=== PATIENT | female | born 1950 | race Caucasian/White ===

== ENCOUNTER → 2016-11-05 | Outpatient (CLI) | payer BC ==
[~2016-11-05] MED LIST: AMLO10TA2 PO; CALC1TAB86 PO; FLUT1DIS IH; LEVO75TA5 PO; LOSA1TAB17 PO; METO25TA91 PO; PARO12.53 PO; RIVA15TA PO
== END | disposition home or self-care (01) ==
LOC: CFH 09:35
PROVIDERS: ATTEND Internal Medicine Cardiovascular Disease
DX: I08.1 Rheumatic disorders of both mitral and tricuspid valves (principal); I48.91 Unspecified atrial fibrillation; I10 Essential (primary) hypertension
CPT/HCPCS: 93306

== ENCOUNTER → 2017-02-25 | Outpatient (CLI) | payer BC ==
[~2017-02-25] MED LIST changes: -LOSA1TAB17 PO; +LOSA1TAB22 PO
== END | disposition home or self-care (01) ==
LOC: CFH 11:53
PROVIDERS: ATTEND Nurse Practitioner Family
DX: I51.7 Cardiomegaly (principal); I10 Essential (primary) hypertension
CPT/HCPCS: 71020

== ENCOUNTER → 2017-04-17 | Outpatient (CLI) | payer BC | END | disposition home or self-care (01) | LOC: CVU 06:53 | PROVIDERS: ATTEND Nurse Practitioner Family | DX: I10 Essential (primary) hypertension (principal); I48.91 Unspecified atrial fibrillation | CPT/HCPCS: 93975 ==

== ENCOUNTER 2017-06-14 10:02 | Emergency (ER) | payer BC ==
[~2017-06-14] VITALS: Ht 165.1 cm; Wt 102.6 kg
[2017-06-14 10:04] VITALS: BP 151/79
[2017-06-14 10:55] LABS: BASOPHILS # (AUTO) 0.01 x10^3/uL (0-0.1); BASOPHILS % (AUTO) 0 % (0-1); EOSINOPHILS # (AUTO) 0.19 x10^3/uL (0-0.4); EOSINOPHILS % (AUTO) 3 % (1-7); LYMPHOCYTES # (AUTO) 0.39 x10^3/uL (1-3.4); LYMPHOCYTES % (AUTO) 6 % (22-44); MD NO; MEAN CORPUSCULAR HEMOGLOBIN 32.2 pg (27.0-34.8); MEAN CORPUSCULAR HGB CONC 33.9 g/dL (32.4-35.8); MEAN CORPUSCULAR VOLUME 94.9 fL (80-100); MEAN PLATELET VOLUME 7.6 fL (7.4-10.4); MONOCYTES # (AUTO) 0.61 x10^3/uL (0.2-0.8); MONOCYTES % (AUTO) 10 % (2-9); NEUTROPHILS # (AUTO) 5.12 x10^3/uL (1.8-6.8); NEUTROPHILS % (AUTO) 81 % (42-75); PLATELET COUNT 323 x10^3/uL (130-400); RED BLOOD COUNT 3.94 x10^6/uL (3.82-5.3); RED CELL DISTRIBUTION WIDTH 13.5 % (9.6-15.2)
[2017-06-14] MEDS ORDERED: SODIUM CHLORIDE FLUSH 10ML SYR IVF ONE (11:00)
[2017-06-14 11:03] LABS: INTERNATIONAL NORMALIZED RATIO 1.09 (0.93-1.1); PROTHROMBIN TIME 11.3 Seconds (9.6-11.5)
[2017-06-14 11:07] LABS: ALANINE AMINOTRANSFERASE 59 U/L (12-78); ALBUMIN 3.3 g/dL (3.4-5.0); ANION GAP 8 mmol/L (5-15); CALCIUM 8.5 mg/dL (8.5-10.1); CHLORIDE 104 mmol/L (98-107)
[2017-06-14 11:11] LABS: ALKALINE PHOSPHATASE 109 U/L (45-117); BILIRUBIN,TOTAL 0.6 mg/dL (0.2-1.0); TOTAL PROTEIN 7.3 g/dL (6.4-8.2); TROPONIN I < 0.015 ng/mL (0.000-0.045)
[2017-06-14] MEDS ORDERED: DABI150C PO (11:24)
[2017-06-14] MEDS ORDERED: VALS1TAB30 PO (11:24)
[2017-06-14] MEDS ORDERED: SPIR25TA PO (11:29)
[2017-06-14] MEDS ORDERED: DOXA1TAB2 PO (11:29)
[2017-06-14] MEDS ORDERED: FURO-93 PO (11:29)
[2017-06-14] MEDS ORDERED: AMIO100T4 PO (11:29)
[2017-06-14] MEDS ORDERED: CARV6.252 PO (11:29)
[2017-06-14] MEDS ORDERED: MAALOX/HYOSCYAMINE/LIDOCAINE 45 ML BTL ONE (11:49)
[2017-06-14] MEDS ORDERED: MAALOX/HYOSCYAMINE/LIDOCAINE 45 ML BTL PO ONE (12:00)
== END 2017-06-14 12:51 | disposition home or self-care (01) ==
LOC: ED 10:30
DX: R07.89 Other chest pain (principal); E03.9 Hypothyroidism, unspecified; I48.91 Unspecified atrial fibrillation; F32.9 Major depressive disorder, single episode, unspecified; I10 Essential (primary) hypertension; Z79.899 Other long term (current) drug therapy
CPT/HCPCS: 36415; 71045; 80053; 83690; 84484; 85025; 85610; 85730; 93005; 99285

== ENCOUNTER → 2017-08-14 | Outpatient (CLI) | payer BC ==
[~2017-08-14] MED LIST changes: +AMIO100T4 PO; +CARV6.252 PO; +DABI150C PO; +DOXA1TAB2 PO; +FURO-93 PO; +SPIR25TA PO; +VALS1TAB30 PO
== END | disposition home or self-care (01) ==
LOC: CARD 15:41
PROVIDERS: ATTEND Nurse Practitioner Family
DX: R06.00 Dyspnea, unspecified (principal); J43.9 Emphysema, unspecified
CPT/HCPCS: 94060; 94726; 94729

== ENCOUNTER 2017-11-27 17:06 | Observation (INO) | payer BC ==
[~2017-11-27] VITALS: Ht 165.1 cm; Wt 100.8 kg
[2017-11-27] MEDS ORDERED: FUROSEMIDE 40 MG/4 ML IV ONE (18:00)
[2017-11-27 18:09] LABS: BASOPHILS # (AUTO) 0.03 x10^3/uL (0-0.1); BASOPHILS % (AUTO) 0 % (0-1); EOSINOPHILS # (AUTO) 0.07 x10^3/uL (0-0.4); EOSINOPHILS % (AUTO) 1 % (1-7); LYMPHOCYTES # (AUTO) 0.34 x10^3/uL (1-3.4); LYMPHOCYTES % (AUTO) 4 % (22-44); MD NO; MEAN CORPUSCULAR HEMOGLOBIN 31.8 pg (27.0-34.8); MEAN CORPUSCULAR HGB CONC 33.8 g/dL (32.4-35.8); MEAN CORPUSCULAR VOLUME 93.9 fL (80-100); MEAN PLATELET VOLUME 7.3 fL (7.4-10.4); MONOCYTES # (AUTO) 0.72 x10^3/uL (0.2-0.8); MONOCYTES % (AUTO) 8 % (2-9); NEUTROPHILS # (AUTO) 8.02 x10^3/uL (1.8-6.8); NEUTROPHILS % (AUTO) 87 % (42-75); PLATELET COUNT 316 x10^3/uL (130-400); RED BLOOD COUNT 3.69 x10^6/uL (3.82-5.3); RED CELL DISTRIBUTION WIDTH 14.5 % (9.6-15.2)
[2017-11-27 18:21] LABS: ALANINE AMINOTRANSFERASE 61 U/L (12-78); ALBUMIN 3.4 g/dL (3.4-5.0); ANION GAP 9 mmol/L (5-15); CHLORIDE 107 mmol/L (98-107); CREATININE 0.94 mg/dL (0.55-1.02)
[2017-11-27 18:25] LABS: ALKALINE PHOSPHATASE 104 U/L (45-117); BILIRUBIN,TOTAL 0.8 mg/dL (0.2-1.0); TROPONIN I < 0.015 ng/mL (0.000-0.045)
[2017-11-27] MEDS ORDERED: FUROSEMIDE 40 MG/4 ML ONE (18:36)
[2017-11-27] MEDS ORDERED: CHOL2000 PO (18:51)
[2017-11-27] MEDS ORDERED: WELLBUTRIN PO (18:51)
[2017-11-27] MEDS ORDERED: CARV12.52 PO (18:51)
[2017-11-27] MEDS ORDERED: PRED10TA PO (18:54)
[2017-11-27] MEDS ORDERED: SODIUM CHLORIDE FLUSH 10ML SYR IVF ONE (19:00)
[2017-11-27] MEDS ORDERED: POTASSIUM CHLORIDE 20 MEQ TAB.ER.PRT PO ONE (20:00)
[2017-11-27] MEDS: CARVEDILOL 12.5 MG TABLET PO SCH (20:54)
[2017-11-27] MEDS: SODIUM CHLORIDE FLUSH 10ML SYR IVF SCH (20:55)
[2017-11-27] MEDS: DABIGATRAN 150 MG CAPSULE PO SCH (20:55)
[2017-11-27] MEDS ORDERED: DOXAZOSIN 1MG TABLET PO SCH (21:00)
[2017-11-27 22:11] VITALS: BP 161/77
[2017-11-28 00:28] VITALS: BP 153/72
[2017-11-28] MEDS ORDERED: LEVOTHYROXINE 75 MCG TABLET PO SCH (06:00)
[2017-11-28 06:47] VITALS: BP 160/71
[2017-11-28] MEDS ORDERED: DOXAZOSIN 2MG TABLET PO SCH (09:00)
[2017-11-28] MEDS ORDERED: SPIRONOLACTONE 25 MG TABLET PO SCH (09:00)
[2017-11-28] MEDS ORDERED: AMIODARONE 200 MG TABLET PO SCH (09:00)
[2017-11-28] MEDS ORDERED: CHOLECALCIFEROL 1,000 UNIT TABLET PO SCH (09:00)
[2017-11-28 09:30] VITALS: BP 118/71
[2017-11-28] MEDS: SODIUM CHLORIDE FLUSH 10ML SYR IVF SCH (09:50)
[2017-11-28] MEDS: DABIGATRAN 150 MG CAPSULE PO SCH (09:57)
[2017-11-28] MEDS: CARVEDILOL 12.5 MG TABLET PO SCH (09:58)
[2017-11-28] MEDS ORDERED: AMLO5TAB4 PO (10:21)
[2017-11-28] MEDS ORDERED: IRBE300T16 PO (10:26)
[2017-11-28] MEDS ORDERED: HYDR50TA3 PO (10:27)
[2017-11-28] MEDS ORDERED: BUMETANIDE 0.25 MG/ML, 4ML IV SCH ×2 (11:00)
[2017-11-28 12:15] VITALS: BP 153/75
[2017-11-28] MEDS ORDERED: DOXAZOSIN 1MG TABLET PO ONE (12:30)
[2017-11-28 14:08] VITALS: BP 135/72
== END 2017-11-28 16:09 | disposition home or self-care (01) ==
LOC: ED 17:22 → EDIP 18:56 → 4WST 20:04 → DCLOUNGE 11-28 15:52
PROVIDERS: ADMIT Hospitalist; ATTEND Hospitalist
DX: I11.0 Hypertensive heart disease with heart failure (principal); I50.1 Left ventricular failure, unspecified; M79.89 Other specified soft tissue disorders; E03.9 Hypothyroidism, unspecified; F32.9 Major depressive disorder, single episode, unspecified; I48.91 Unspecified atrial fibrillation; K21.9 Gastro-esophageal reflux disease without esophagitis; Z79.01 Long term (current) use of anticoagulants
CPT/HCPCS: 36415; 71045; 80053; 83880; 84484; 85025; 85379; 93005; 93306; 96374; 96375; 96376; 99285; G0378; J1940

== ENCOUNTER 2017-12-01 12:46 | Emergency (ER) | payer BC ==
[~2017-12-01] VITALS: Ht 165.1 cm; Wt 97.0 kg
[~2017-12-01 12:46] MED LIST changes: +AMLO5TAB4 PO; +CARV12.52 PO; +CHOL2000 PO; +HYDR50TA3 PO; +IRBE300T16 PO; +PRED10TA PO; +WELLBUTRIN PO
[2017-12-01 13:55] LABS: MEAN CORPUSCULAR HEMOGLOBIN 31.4 pg (27.0-34.8); MEAN CORPUSCULAR HGB CONC 33.9 g/dL (32.4-35.8); MEAN CORPUSCULAR VOLUME 92.5 fL (80-100); MEAN PLATELET VOLUME 7.4 fL (7.4-10.4); PLATELET COUNT 386 x10^3/uL (130-400); RED BLOOD COUNT 4.34 x10^6/uL (3.82-5.3); RED CELL DISTRIBUTION WIDTH 14.6 % (9.6-15.2)
[2017-12-01 14:04] LABS: ALANINE AMINOTRANSFERASE 42 U/L (12-78); ALBUMIN 3.8 g/dL (3.4-5.0); ANION GAP 3 mmol/L (5-15); CALCIUM 9.1 mg/dL (8.5-10.1); CHLORIDE 100 mmol/L (98-107); CREATININE 1.53 mg/dL (0.55-1.02)
[2017-12-01 14:09] LABS: ALKALINE PHOSPHATASE 99 U/L (45-117); BILIRUBIN,TOTAL 1.3 mg/dL (0.2-1.0); TOTAL PROTEIN 8.1 g/dL (6.4-8.2)
[2017-12-01 14:17] LABS: BASOPHILS # (AUTO) 0.03 x10^3/uL (0-0.1); BASOPHILS % (AUTO) 0 % (0-1); EOSINOPHILS # (AUTO) 0.13 x10^3/uL (0-0.4); EOSINOPHILS % (AUTO) 1 % (1-7); LYMPHOCYTES # (AUTO) 0.63 x10^3/uL (1-3.4); LYMPHOCYTES % (AUTO) 6 % (22-44); MD SCAN; MONOCYTES # (AUTO) 0.87 x10^3/uL (0.2-0.8); MONOCYTES % (AUTO) 9 % (2-9); NEUTROPHILS # (AUTO) 8.42 x10^3/uL (1.8-6.8); NEUTROPHILS % (AUTO) 84 % (42-75)
[2017-12-01 15:46] VITALS: BP 125/60
[2017-12-01 16:01] LABS: CULTURE INDICATED? YES; MICROSCOPIC INDICATED
== END 2017-12-01 16:41 | disposition home or self-care (01) ==
LOC: ED 15:27
DX: R53.1 Weakness (principal); I50.9 Heart failure, unspecified; I48.91 Unspecified atrial fibrillation; I11.0 Hypertensive heart disease with heart failure; E03.9 Hypothyroidism, unspecified
CPT/HCPCS: 36415; 80053; 81001; 85025; 87086; 93005; 99285

== ENCOUNTER → 2018-06-08 | Outpatient (CLI) | payer BC ==
[~2018-06-08] MED LIST changes: -AMLO10TA2 PO; +AMLO10TA8 PO
== END | disposition home or self-care (01) ==
LOC: CFH 13:40
PROVIDERS: ATTEND Internal Medicine Cardiovascular Disease
DX: I08.1 Rheumatic disorders of both mitral and tricuspid valves (principal); I48.91 Unspecified atrial fibrillation; I11.9 Hypertensive heart disease without heart failure
CPT/HCPCS: 93306

== ENCOUNTER → 2018-06-17 | Outpatient (CLI) | payer BC | END | disposition home or self-care (01) | LOC: CFH 09:04 | PROVIDERS: ATTEND Internal Medicine Cardiovascular Disease | DX: I27.20 Pulmonary hypertension, unspecified (principal); I51.7 Cardiomegaly | CPT/HCPCS: 71046 ==

== ENCOUNTER 2018-09-27 13:02 | Emergency (ER) | payer BC ==
[~2018-09-27] VITALS: Ht 165.1 cm; Wt 93.0 kg
[~2018-09-27 13:02] MED LIST changes: +CALC-725 PO; -CALC1TAB86 PO
--- NOTE | 2018-09-27 13:31 | NUR ---
PT TO RM FROM TRIAGE, STATES SHE IS NOT HAVING CP, DESCRIBES IT "CHEST TIGHTNESS". PT STATES SHE BEGAN HAVING THE CHEST TIGHTNESS ABOUT A WEEK AGO ALSO DEVELOPED A DRY COUGH. PT TO CONT PULSE OX, CARDIAC MONITIOR, NIBP. SHE DENIES SOB OR TRAUMA.
[2018-09-27] MEDS ORDERED: ALBUTEROL/IPRATROPIUM 2.5MG/0.5MG, 3 ML ONE (13:56)
[2018-09-27] MEDS ORDERED: SODIUM CHLORIDE FLUSH 10ML SYR IVF ONE (14:00)
[2018-09-27] MEDS ORDERED: ALBUTEROL/IPRATROPIUM 2.5MG/0.5MG, 3 ML NPPB ONE (14:00)
[2018-09-27] MEDS ORDERED: ASPIRIN 81 MG TABLET CHEW PO ONE (14:00)
[2018-09-27] MEDS ORDERED: ASPIRIN 81 MG TABLET CHEW ONE (14:01)
[2018-09-27 14:20] LABS: BASOPHILS # (AUTO) 0.02 x10^3/uL (0-0.1); BASOPHILS % (AUTO) 0 % (0-1); EOSINOPHILS # (AUTO) 0.08 x10^3/uL (0-0.4); EOSINOPHILS % (AUTO) 1 % (1-7); LYMPHOCYTES # (AUTO) 0.48 x10^3/uL (1-3.4); LYMPHOCYTES % (AUTO) 8 % (22-44); MD NO; MEAN CORPUSCULAR HEMOGLOBIN 30.5 pg (27.0-34.8); MEAN CORPUSCULAR HGB CONC 32.2 g/dL (32.4-35.8); MEAN CORPUSCULAR VOLUME 94.6 fL (80-100); MEAN PLATELET VOLUME 7.2 fL (7.4-10.4); MONOCYTES # (AUTO) 0.75 x10^3/uL (0.2-0.8); MONOCYTES % (AUTO) 12 % (2-9); NEUTROPHILS # (AUTO) 4.68 x10^3/uL (1.8-6.8); NEUTROPHILS % (AUTO) 78 % (42-75); PLATELET COUNT 353 x10^3/uL (130-400); RED BLOOD COUNT 3.76 x10^6/uL (3.82-5.3); RED CELL DISTRIBUTION WIDTH 14.4 % (9.6-15.2)
--- NOTE | 2018-09-27 14:27 | NUR ---
PT CONTINUES TO DENY PAIN AT THIS TIME, PT PROVIDER BLANKET, MEDICATED PER MAR
[2018-09-27 14:31] LABS: ALBUMIN 3.4 g/dL (3.4-5.0); ANION GAP 7 mmol/L (5-15); CALCIUM 8.6 mg/dL (8.5-10.1); CHLORIDE 105 mmol/L (98-107)
[2018-09-27 14:37] LABS: ALANINE AMINOTRANSFERASE 33 U/L (12-78); ALKALINE PHOSPHATASE 90 U/L (45-117); CREATININE 1.06 mg/dL (0.55-1.02); TROPONIN I < 0.015 ng/mL (0.000-0.045)
[2018-09-27 14:38] LABS: INTERNATIONAL NORMALIZED RATIO 1.06 (0.93-1.1); PROTHROMBIN TIME 11.1 Seconds (9.6-11.5)
[2018-09-27 14:45] LABS: TOTAL PROTEIN 7.1 g/dL (6.4-8.2)
--- NOTE | 2018-09-27 15:00 | NUR ---
EDMD IN TO UPDATE PT ON POC. BELONGINGS LIST COMPLETED, PT TO BE ADMITTED
[2018-09-27 16:12] VITALS: BP 155/61
== END 2018-09-27 16:15 | disposition home or self-care (01) ==
LOC: ED 13:40
DX: J45.31 Mild persistent asthma with (acute) exacerbation (principal); R07.2 Precordial pain; I50.9 Heart failure, unspecified; I11.0 Hypertensive heart disease with heart failure; I48.91 Unspecified atrial fibrillation; Z87.891 Personal history of nicotine dependence
CPT/HCPCS: 36415; 71045; 80053; 83880; 84443; 84484; 85025; 85610; 85730; 93005; 94640; 99284; J7512; J7620

== ENCOUNTER 2019-03-24 17:22 | Emergency (ER) | payer BC ==
[~2019-03-24] VITALS: Ht 165.1 cm; Wt 93.8 kg
[~2019-03-24 17:22] MED LIST changes: +APIX5TAB PO; +HYDR-3343 PO
[2019-03-24 17:23] VITALS: BP 147/72
[2019-03-24] MEDS ORDERED: NEOSPORIN OINT. PKT 1 PACKET ONE (17:39)
[2019-03-24] MEDS ORDERED: LIDOCAINE-MPF 1%, 5ML ONE ×2 (17:40→18:08)
--- NOTE | 2019-03-24 18:23 | NUR ---
RIGHT THUMB LACERATION SUTURED BY PROVIDER, THEN BACITRACIN DRSG APPLIED
== END 2019-03-24 18:59 | disposition home or self-care (01) ==
LOC: ED 17:36
DX: S61.216A Laceration without foreign body of right little finger without damage to nail, initial encounter (principal); I11.0 Hypertensive heart disease with heart failure; I50.9 Heart failure, unspecified; I48.91 Unspecified atrial fibrillation; E03.9 Hypothyroidism, unspecified
CPT/HCPCS: 12041; 99284

== ENCOUNTER 2019-08-09 15:04 | Emergency (ER) | payer BC ==
[~2019-08-09] VITALS: Ht 165.1 cm; Wt 88.0 kg
[~2019-08-09 15:04] MED LIST changes: -IRBE300T16 PO; +IRBE300T8 PO; -PARO12.53 PO; +PARO12.54 PO
--- NOTE | 2019-08-09 15:21 | NUR ---
lisa. report received from ems. pt c/o dzy/fatigue/left sided numbness/chest pressure x 3 days and getting worse. speech clear. face symmetrical. hx of a-fib. nsr rate 60's on electronics technology department chair at this time. pt's aox4. resps even and unlabored. denies cough/sob/fever. all monitors in place. call light within reach. pa at bedside to evaluate at this time. ekg done by emt.
[2019-08-09 16:03] LABS: BASOPHILS # (AUTO) 0.03 x10^3/uL (0-0.1); BASOPHILS % (AUTO) 0 % (0-1); EOSINOPHILS # (AUTO) 0.07 x10^3/uL (0-0.4); EOSINOPHILS % (AUTO) 1 % (1-7); LYMPHOCYTES # (AUTO) 0.57 x10^3/uL (1-3.4); LYMPHOCYTES % (AUTO) 9 % (22-44); MD NO; MEAN CORPUSCULAR HEMOGLOBIN 32.2 pg (27.0-34.8); MEAN CORPUSCULAR HGB CONC 33.7 g/dL (32.4-35.8); MEAN CORPUSCULAR VOLUME 95.6 fL (80-100); MEAN PLATELET VOLUME 7.3 fL (7.4-10.4); MONOCYTES # (AUTO) 0.79 x10^3/uL (0.2-0.8); MONOCYTES % (AUTO) 13 % (2-9); NEUTROPHILS # (AUTO) 4.81 x10^3/uL (1.8-6.8); NEUTROPHILS % (AUTO) 77 % (42-75); PLATELET COUNT 350 x10^3/uL (130-400); RED BLOOD COUNT 3.53 x10^6/uL (3.82-5.3); RED CELL DISTRIBUTION WIDTH 14.2 % (9.6-15.2)
[2019-08-09 16:09] LABS: INTERNATIONAL NORMALIZED RATIO 1.02 (0.93-1.1); PROTHROMBIN TIME 10.8 Seconds (9.6-11.5)
[2019-08-09 16:11] LABS: ALBUMIN 3.3 g/dL (3.4-5.0); ANION GAP 6 mmol/L (5-15); CALCIUM 8.4 mg/dL (8.5-10.1); CHLORIDE 104 mmol/L (98-107)
[2019-08-09 16:17] LABS: ALANINE AMINOTRANSFERASE 41 U/L (12-78); ALKALINE PHOSPHATASE 72 U/L (45-117); BILIRUBIN,TOTAL 0.5 mg/dL (0.2-1.0); CREATININE 1.11 mg/dL (0.55-1.02); TROPONIN I < 0.015 ng/mL (0.000-0.045)
--- NOTE | 2019-08-09 16:17 | NUR ---
PT AMB TO BR WITH STEADY GAIT. URINE CUP GIVEN.
--- NOTE | 2019-08-09 16:28 | NUR ---
pt provided urine sample at this time. ua sent.
[2019-08-09 16:58] LABS: CULTURE INDICATED? YES; MICROSCOPIC INDICATED
--- NOTE | 2019-08-09 17:51 | NUR ---
PT RESTING IN [facility]. PT'S AOX4. RESPS EVEN AND UNLABORED. ALL MONITORS IN PLACE. CALL LIGHT WITHIN REACH. DENIES ANY NEEDS OR CONCERNS AT THIS TIME.
[2019-08-09 18:15] VITALS: BP 166/66
--- NOTE | 2019-08-09 18:16 | NUR ---
Patient given discharge instructions and they have confirmed that they understand the instructions.
== END 2019-08-09 18:18 | disposition home or self-care (01) ==
LOC: ED 18:00
DX: R55 Syncope and collapse (principal); R42 Dizziness and giddiness; I11.0 Hypertensive heart disease with heart failure; I50.9 Heart failure, unspecified; J45.909 Unspecified asthma, uncomplicated; I48.91 Unspecified atrial fibrillation; E03.9 Hypothyroidism, unspecified; R94.31 Abnormal electrocardiogram [ECG] [EKG]
CPT/HCPCS: 36415; 70450; 71045; 80053; 81001; 84484; 85025; 85610; 85730; 87077; 87086; 87186; 93005; 99285

== ENCOUNTER → 2019-09-24 | Outpatient (CLI) | payer BC | END | disposition home or self-care (01) | LOC: CFH 07:51 | PROVIDERS: ATTEND Nurse Practitioner Family | DX: I10 Essential (primary) hypertension (principal) | CPT/HCPCS: 93975 ==

== ENCOUNTER 2019-11-04 11:21 | Emergency (ER) | payer BC ==
[~2019-11-04] VITALS: Ht 165.1 cm; Wt 85.0 kg
--- NOTE | 2019-11-04 11:47 | NUR ---
BIB [facility]. Syncopal/near syncopal event last night. C/O right lateral/posterior chest pain worse with movement. Patient reports feeling dizzy prior to fall. She had not tkaen her PM BP meds yet. Reports hitting head. Taking Eliquis. No laceration or hematoma noted to head. Neuro intact. NAD. EKG done. Placed on NIBP, pulse ox and registered nurse cardiac. Will continue to monitor.
[2019-11-04 12:01] LABS: BASOPHILS % (AUTO) 0 % (0-1); EOSINOPHILS # (AUTO) 0.09 x10^3/uL (0-0.4); EOSINOPHILS % (AUTO) 1 % (1-7); LYMPHOCYTES # (AUTO) 0.63 x10^3/uL (1-3.4); LYMPHOCYTES % (AUTO) 7 % (22-44); MD NO; MEAN CORPUSCULAR HEMOGLOBIN 32.1 pg (27.0-34.8); MEAN CORPUSCULAR HGB CONC 33.6 g/dL (32.4-35.8); MEAN CORPUSCULAR VOLUME 95.7 fL (80-100); MEAN PLATELET VOLUME 7.4 fL (7.4-10.4); MONOCYTES # (AUTO) 0.91 x10^3/uL (0.2-0.8); MONOCYTES % (AUTO) 10 % (2-9); NEUTROPHILS # (AUTO) 7.26 x10^3/uL (1.8-6.8); NEUTROPHILS % (AUTO) 82 % (42-75); PLATELET COUNT 333 x10^3/uL (130-400); RED CELL DISTRIBUTION WIDTH 14.1 % (9.6-15.2)
[2019-11-04] MEDS ORDERED: ONDANSETRON 2MG/ML, 2ML ONE (12:34)
[2019-11-04] MEDS ORDERED: MORPHINE SULFATE 4 MG/ML, 1ML ONE (12:34)
--- NOTE | 2019-11-04 12:40 | NUR ---
C/O pain. VSS. Meds admin. Patient to xray.
[2019-11-04 12:47] LABS: ALBUMIN 3.3 g/dL (3.4-5.0); ANION GAP 5 mmol/L (5-15); CALCIUM 8.6 mg/dL (8.5-10.1); CHLORIDE 104 mmol/L (98-107)
[2019-11-04 12:54] LABS: ALANINE AMINOTRANSFERASE 35 U/L (12-78); ALKALINE PHOSPHATASE 59 U/L (45-117); BILIRUBIN,TOTAL 0.5 mg/dL (0.2-1.0); CREATININE 1.74 mg/dL (0.55-1.02); TOTAL PROTEIN 6.9 g/dL (6.4-8.2); TROPONIN I < 0.015 ng/mL (0.000-0.045)
[2019-11-04] MEDS ORDERED: MORPHINE SULFATE 4 MG/ML, 1ML IVPush ONE (13:00)
[2019-11-04] MEDS ORDERED: ONDANSETRON 2MG/ML, 2ML IVPush ONE (13:00)
[2019-11-04 13:37] VITALS: BP 164/63
--- NOTE | 2019-11-04 13:38 | NUR ---
Patient/Caregiver given discharge instructions and they have confirmed that they understand the instructions. Patient ambulatory with steady gait.
== END 2019-11-04 13:39 ==
LOC: ED 11:48
DX: S30.0XXA Contusion of lower back and pelvis, initial encounter (principal); S09.90XA Unspecified injury of head, initial encounter; R07.89 Other chest pain; R55 Syncope and collapse; M54.2 Cervicalgia; I11.0 Hypertensive heart disease with heart failure; I50.9 Heart failure, unspecified; I48.91 Unspecified atrial fibrillation; Z90.710 Acquired absence of both cervix and uterus; X58.XXXA Exposure to other specified factors, initial encounter; Y93.89 Activity, other specified; Y92.89 Other specified places as the place of occurrence of the external cause; Y99.8 Other external cause status
CPT/HCPCS: 36415; 70450; 71101; 72125; 72220; 80053; 84484; 85025; 93005; 96374; 96375; 99285; J2270; J2405

== ENCOUNTER 2019-12-09 09:17 | Inpatient (IN) | payer BC, MEDICARE ==
[~2019-12-09] VITALS: Ht 165.1 cm; Wt 82.4 kg
--- NOTE | 2019-12-09 09:30 | NUR ---
"HEART PALPATATIONS" DIZZY "I FEEL LIKE I'M GOING TO PITCH FORWARD" DENIES SOB OR CP "I JUST FEEL HEART POUNDING" Ecg in triage-Hr of 40 Hx of bradycardia as well as afib. Recently reduced amiodarone 200->100 Defib pads placed as well as veterinary attendant two pivs placed Patient alert/good color/ able to change into gown herself
[2019-12-09] MEDS ORDERED: SODIUM CHLORIDE FLUSH 10ML SYR IVF ONE (10:00)
[2019-12-09 10:07] LABS: BASOPHILS # (AUTO) 0.03 x10^3/uL (0-0.1); BASOPHILS % (AUTO) 0 % (0-1); EOSINOPHILS # (AUTO) 0.01 x10^3/uL (0-0.4); EOSINOPHILS % (AUTO) 0 % (1-7); LYMPHOCYTES # (AUTO) 0.57 x10^3/uL (1-3.4); LYMPHOCYTES % (AUTO) 6 % (22-44); MD NO; MEAN CORPUSCULAR HEMOGLOBIN 32.5 pg (27.0-34.8); MEAN CORPUSCULAR HGB CONC 33.1 g/dL (32.4-35.8); MEAN CORPUSCULAR VOLUME 98.3 fL (80-100); MEAN PLATELET VOLUME 7.7 fL (7.4-10.4); MONOCYTES # (AUTO) 0.76 x10^3/uL (0.2-0.8); MONOCYTES % (AUTO) 8 % (2-9); NEUTROPHILS # (AUTO) 8.09 x10^3/uL (1.8-6.8); NEUTROPHILS % (AUTO) 86 % (42-75); PLATELET COUNT 369 x10^3/uL (130-400); RED BLOOD COUNT 3.76 x10^6/uL (3.82-5.3); RED CELL DISTRIBUTION WIDTH 14.1 % (9.6-15.2)
[2019-12-09 10:14] LABS: INTERNATIONAL NORMALIZED RATIO 1.01 (0.93-1.1); PROTHROMBIN TIME 10.4 Seconds (9.6-11.5)
[2019-12-09 10:17] LABS: ALBUMIN 3.9 g/dL (3.4-5.0); ANION GAP 9 mmol/L (5-15); CALCIUM 8.8 mg/dL (8.5-10.1); CHLORIDE 101 mmol/L (98-107)
[2019-12-09] MEDS ORDERED: SODIUM CHLORIDE 0.9% 1,000 ML IV ONE (10:20)
--- NOTE | 2019-12-09 10:41 | NUR ---
After review of lab results-medicated per emar Vitals unchanged. Remains dizzy (rated it at 7/10) but mentating. Good color/distal cap refill
[2019-12-09] MEDS ORDERED: VALS1TAB30 PO (10:57)
[2019-12-09 11:08] LABS: CREATININE 1.73 mg/dL (0.55-1.02)
[2019-12-09 11:11] LABS: TROPONIN I < 0.015 ng/mL (0.000-0.045)
--- NOTE | 2019-12-09 11:54 | NUR ---
Dr. Walker (platform material handler manager) at bedside. plan to hold carvedilol/amiodarone/eliquis/npo at midnight for pacemaker placement.
[2019-12-09 12:40] VITALS: BP 131/55
[2019-12-09] MEDS ORDERED: hydrALAzine 20 MG/ML, 1ML IVPush PRN (14:00)
[2019-12-09] MEDS ORDERED: SODIUM POLYSTYRENE SULFONATE ORAL SUSP PO ONE (14:00)
[2019-12-09] MEDS ORDERED: ONDANSETRON 2MG/ML, 2ML IVPush PRN (14:00)
[2019-12-09] MEDS ORDERED: PROMETHAZINE 25 MG/ML, 1ML IM PRN (14:00)
[2019-12-09] MEDS: SODIUM CHLORIDE 0.9% 1,000 ML IV SCH ×4 (14:08→23:10)
[2019-12-09 17:18] LABS: ANION GAP 6 mmol/L (5-15); CALCIUM 8.5 mg/dL (8.5-10.1); CHLORIDE 108 mmol/L (98-107); CREATININE 1.48 mg/dL (0.55-1.02)
[2019-12-09 17:22] LABS: TROPONIN I < 0.015 ng/mL (0.000-0.045)
[2019-12-09 18:56] VITALS: BP 118/56
[2019-12-09 20:13] VITALS: BP 90/52
[2019-12-09] MEDS: DOXAZOSIN 1MG TABLET PO SCH (20:24)
[2019-12-09] MEDS: ACETAMINOPHEN 325 MG TABLET PO PRN (22:46)
[2019-12-09 22:48] VITALS: BP 110/54
[2019-12-10] LABS: TROPONIN I < 0.015 ng/mL (0.000-0.045)
[2019-12-10 01:14] VITALS: BP 104/55
[2019-12-10 05:19] LABS: BASOPHILS # (AUTO) 0.02 x10^3/uL (0-0.1); BASOPHILS % (AUTO) 0 % (0-1); EOSINOPHILS % (AUTO) 0 % (1-7); LYMPHOCYTES # (AUTO) 0.68 x10^3/uL (1-3.4); LYMPHOCYTES % (AUTO) 10 % (22-44); MD NO; MEAN CORPUSCULAR HEMOGLOBIN 32.1 pg (27.0-34.8); MEAN CORPUSCULAR HGB CONC 32.4 g/dL (32.4-35.8); MEAN CORPUSCULAR VOLUME 99.1 fL (80-100); MEAN PLATELET VOLUME 7.6 fL (7.4-10.4); MONOCYTES # (AUTO) 0.59 x10^3/uL (0.2-0.8); MONOCYTES % (AUTO) 9 % (2-9); NEUTROPHILS # (AUTO) 5.54 x10^3/uL (1.8-6.8); NEUTROPHILS % (AUTO) 81 % (42-75); PLATELET COUNT 282 x10^3/uL (130-400); RED BLOOD COUNT 3.31 x10^6/uL (3.82-5.3); RED CELL DISTRIBUTION WIDTH 13.7 % (9.6-15.2)
[2019-12-10 05:21] LABS: ALANINE AMINOTRANSFERASE 41 U/L (12-78); ALBUMIN 2.9 g/dL (3.4-5.0); ANION GAP 5 mmol/L (5-15); CHLORIDE 109 mmol/L (98-107); CREATININE 1.39 mg/dL (0.55-1.02)
[2019-12-10 05:27] LABS: ALKALINE PHOSPHATASE 64 U/L (45-117); BILIRUBIN,TOTAL 0.4 mg/dL (0.2-1.0); TOTAL PROTEIN 6.2 g/dL (6.4-8.2)
[2019-12-10] MEDS: SODIUM CHLORIDE 0.9% 1,000 ML IV SCH ×2 (05:57→07:10)
[2019-12-10 07:20] VITALS: BP 150/62
[2019-12-10] MEDS ORDERED: LIDOCAINE 1%, 20ML ONE (10:30)
[2019-12-10] MEDS ORDERED: CEFAZOLIN 1,000 MG ONE (10:31)
[2019-12-10] MEDS ORDERED: FENTANYL PF 100 MCG/2ML ONE (10:31)
[2019-12-10] MEDS ORDERED: MIDAZOLAM 1 MG/ML, 5ML ONE (10:31)
[2019-12-10] MEDS ORDERED: CEFAZOLIN PMX 1GM/50ML 50 ML ONE (10:31)
[2019-12-10] MEDS ORDERED: CEFAZOLIN PMX 1GM/50ML 50 ML IVPB ONE (11:00)
[2019-12-10] MEDS ORDERED: HOLD MEDICATION MC PRN (12:00)
[2019-12-10] MEDS ORDERED: HYDROcodone/APAP 5/325 TABLET PO PRN (12:00)
[2019-12-10 12:06] VITALS: BP 108/65
[2019-12-10] MEDS: DOXAZOSIN 1MG TABLET PO SCH ×2 (15:00→20:49)
[2019-12-10] MEDS: LEVOTHYROXINE 75 MCG TABLET PO SCH (16:24)
[2019-12-10] MEDS: ACETAMINOPHEN 325 MG TABLET PO PRN (16:31)
[2019-12-10] MEDS: CEFAZOLIN PMX 1GM/50ML 50 ML IVPB SCH (18:13)
[2019-12-10 19:04] VITALS: BP 95/58
[2019-12-10 20:47] VITALS: BP 123/71
[2019-12-10] MEDS: SODIUM CHLORIDE FLUSH 10ML SYR IVF SCH (20:49)
[2019-12-11 01:27] VITALS: BP 144/65
[2019-12-11] MEDS: CEFAZOLIN PMX 1GM/50ML 50 ML IVPB SCH ×2 (01:41→09:52)
[2019-12-11 06:56] VITALS: BP 135/88
[2019-12-11 07:56] LABS: ANION GAP 5 mmol/L (5-15); CALCIUM 8.3 mg/dL (8.5-10.1); CHLORIDE 111 mmol/L (98-107); CREATININE 0.99 mg/dL (0.55-1.02)
[2019-12-11] MEDS: SODIUM CHLORIDE FLUSH 10ML SYR IVF SCH (07:58)
[2019-12-11] MEDS: LEVOTHYROXINE 75 MCG TABLET PO SCH (07:59)
[2019-12-11] MEDS: DOXAZOSIN 1MG TABLET PO SCH (07:59)
[2019-12-11] MEDS: ACETAMINOPHEN 325 MG TABLET PO PRN (08:06)
[2019-12-11 13:22] VITALS: BP 123/65
[2019-12-11] MEDS ORDERED: AMIODARONE 200 MG TABLET PO SCH (18:00)
[2019-12-11] MEDS ORDERED: CARVEDILOL 3.125 MG TABLET PO SCH (18:00)
== END 2019-12-11 14:25 | disposition home or self-care (01) | DRG 242 ==
LOC: ED 10:11 → EDIP 10:23 → 5SO 12:26
PROVIDERS: ADMIT Family Medicine; ATTEND Family Medicine
PROC: 0JH606Z Insertion of Pacemaker, Dual Chamber into Chest Subcutaneous Tissue and Fascia, Open Approach (ICD-10-PCS; principal; 2019-12-10)
PROC: 02H63JZ Insertion of Pacemaker Lead into Right Atrium, Percutaneous Approach (ICD-10-PCS; 2019-12-10)
PROC: 02HK3JZ Insertion of Pacemaker Lead into Right Ventricle, Percutaneous Approach (ICD-10-PCS; 2019-12-10)
DX: I49.5 Sick sinus syndrome (principal); N18.6 End stage renal disease; D68.69 Other thrombophilia; E87.1 Hypo-osmolality and hyponatremia; E44.1 Mild protein-calorie malnutrition; I50.32 Chronic diastolic (congestive) heart failure; N17.9 Acute kidney failure, unspecified; I13.2 Hypertensive heart and chronic kidney disease with heart failure and with stage 5 chronic kidney disease, or end stage renal disease; D64.9 Anemia, unspecified; E03.9 Hypothyroidism, unspecified; Z68.30 Body mass index [BMI] 30.0-30.9, adult; E86.0 Dehydration; E86.1 Hypovolemia; E87.5 Hyperkalemia; I07.1 Rheumatic tricuspid insufficiency; I48.0 Paroxysmal atrial fibrillation; Z79.01 Long term (current) use of anticoagulants; Z79.899 Other long term (current) drug therapy; Z87.891 Personal history of nicotine dependence; Z90.710 Acquired absence of both cervix and uterus; I27.20 Pulmonary hypertension, unspecified; E83.41 Hypermagnesemia
CPT/HCPCS: 33208; 36415; J3490; 71045; 80048; 80053; 82040; 83735; 84443; 84484; 85025; 85610; 93005; 93306; 99156; 99157; C1779; C1785; C1892; G0378; J0690; J2250; J3010; J7030

== ENCOUNTER → 2020-01-04 | Outpatient (CLI) | payer BC | END | disposition home or self-care (01) | LOC: CFH 10:05 | PROVIDERS: ATTEND Internal Medicine Cardiovascular Disease | DX: I10 Essential (primary) hypertension (principal); I27.20 Pulmonary hypertension, unspecified; I34.0 Nonrheumatic mitral (valve) insufficiency; I48.0 Paroxysmal atrial fibrillation; R60.9 Edema, unspecified; R94.5 Abnormal results of liver function studies; R06.02 Shortness of breath | CPT/HCPCS: 71046 ==

== ENCOUNTER 2020-06-25 10:52 | Emergency (ER) | payer BC ==
[~2020-06-25] VITALS: Ht 165.1 cm; Wt 86.7 kg
[~2020-06-25 10:52] MED LIST changes: +AMLO-211 PO; -AMLO10TA8 PO; -HYDR50TA3 PO; +HYDR50TA6 PO
[2020-06-25 11:23] LABS: BASOPHILS % (AUTO) 1 % (0-1); EOSINOPHILS % (AUTO) 1 % (1-7); LYMPHOCYTES % (AUTO) 12 % (22-44); MD NO; MEAN CORPUSCULAR HEMOGLOBIN 32.6 pg (27.0-34.8); MEAN CORPUSCULAR HGB CONC 33.9 g/dL (32.4-35.8); MEAN PLATELET VOLUME 7.3 fL (7.4-10.4); MONOCYTES % (AUTO) 10 % (2-9); NEUTROPHILS % (AUTO) 76 % (42-75); PLATELET COUNT 316 x10^3/uL (130-400); RED BLOOD COUNT 3.48 x10^6/uL (3.82-5.3); RED CELL DISTRIBUTION WIDTH 12.7 % (9.6-15.2)
--- NOTE | 2020-06-25 11:29 | NUR ---
Pt came in with complaints of intermittent sternal chest pressure that has been occuring for the last three weeks. Notices that the pressure is worse at night when she is lying in bed. Pt has a cardiac hx but is otherwise unsymptomatic from the chest pressure. A&O x4, speaking in full sentences, able to ddress in gown and ambulate to [facility]. Placed on all monitors, EKG done, and positioned for comfort.
[2020-06-25] MEDS ORDERED: ASPIRIN 81 MG TABLET CHEW PO ONE (11:30)
[2020-06-25 11:33] LABS: ANION GAP 6 mmol/L (5-15); CALCIUM 8.6 mg/dL (8.5-10.1); CHLORIDE 106 mmol/L (98-107); CREATININE 1.13 mg/dL (0.55-1.02)
[2020-06-25 11:34] LABS: ALANINE AMINOTRANSFERASE 28 U/L (12-78); ALBUMIN 3.5 g/dL (3.4-5.0)
[2020-06-25 11:38] LABS: ALKALINE PHOSPHATASE 78 U/L (45-117); BILIRUBIN,TOTAL 0.6 mg/dL (0.2-1.0); TOTAL PROTEIN 7.3 g/dL (6.4-8.2); TROPONIN I < 0.015 ng/mL (0.000-0.045)
[2020-06-25] MEDS ORDERED: ASPIRIN 81 MG TABLET CHEW ONE (11:39)
--- NOTE | 2020-06-25 11:45 | NUR ---
PT MEDICATED PER MAR
--- NOTE | 2020-06-25 12:34 | NUR ---
PT RESTING COMFORTABLY IN BED WATCHING TV, NO OTHER NEEDS AT THIS TIME
[2020-06-25] MEDS ORDERED: hydrALAzine 20 MG/ML, 1ML IV ONE (13:00)
[2020-06-25] MEDS ORDERED: hydrALAzine 20 MG/ML, 1ML ONE (13:12)
--- NOTE | 2020-06-25 13:55 | NUR ---
PT BP IMPROVING AFTER MEDS. WILL CONTINUE TO MONITOR
[2020-06-25 14:45] VITALS: BP 148/52
--- NOTE | 2020-06-25 14:45 | NUR ---
pt sitting up in bed watching home improvement shows, no other needs at this time.
== END 2020-06-25 15:18 | disposition home or self-care (01) ==
LOC: ED 12:28
DX: R07.89 Other chest pain (principal); E03.9 Hypothyroidism, unspecified; I11.0 Hypertensive heart disease with heart failure; I50.9 Heart failure, unspecified; I48.91 Unspecified atrial fibrillation
CPT/HCPCS: 36415; 71045; 80053; 83880; 84484; 85025; 85379; 93005; 96374; 99285; J0360

== ENCOUNTER 2020-09-12 14:58 | Outpatient (CLI) | payer BC ==
[2020-09-12] MEDS ORDERED: OMNIPAQUE 350 MG/ML, 100ML BOTTLE ONE (16:09)
== END 2020-09-12 23:59 | disposition home or self-care (01) ==
LOC: CFH 14:58
PROVIDERS: ATTEND Internal Medicine Cardiovascular Disease
DX: C74.10 Malignant neoplasm of medulla of unspecified adrenal gland (principal)
CPT/HCPCS: 74170; 82565; Q9967